=== PATIENT | female | born 1990 | race Caucasian/White ===

== ENCOUNTER 2018-12-04 23:40 | Emergency (ER) | payer SELFPAY ==
[~2018-12-04] VITALS: Ht 170.2 cm; Wt 86.2 kg
[2018-12-04 23:43] VITALS: BP 144/81; Ht 170.2 cm; Wt 86.2 kg
== END 2018-12-05 01:54 | disposition home or self-care (01) ==
LOC: ED 23:40
DX: S20.01XA Contusion of right breast, initial encounter (principal); S40.022A Contusion of left upper arm, initial encounter; S09.8XXA Other specified injuries of head, initial encounter; Z98.51 Tubal ligation status; Z98.890 Other specified postprocedural states; Y04.1XXA Assault by human bite, initial encounter; Y93.89 Activity, other specified; Y92.89 Other specified places as the place of occurrence of the external cause; Y99.8 Other external cause status
CPT/HCPCS: 90715; J1885

== ENCOUNTER 2019-01-10 20:31 | Emergency (ER) | payer SELFPAY ==
[~2019-01-10] VITALS: Ht 170.2 cm; Wt 112.5 kg
[2019-01-10 20:42] VITALS: Ht 170.2 cm; Wt 112.5 kg
[2019-01-10 21:58] VITALS: BP 148/98
== END 2019-01-10 21:58 | disposition home or self-care (01) ==
LOC: ED 20:31
DX: M23.92 Unspecified internal derangement of left knee (principal); M71.9 Bursopathy, unspecified
CPT/HCPCS: J1885